=== PATIENT | male | born 1980 | race Caucasian/White ===

== ENCOUNTER 2020-05-06 20:33 | Emergency (ER) | payer SELFPAY ==
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
[2020-05-06] MEDS ORDERED: Lactated Ringers 1,000 ML IV ONE (20:45)
[2020-05-06] MEDS ORDERED: Sodium Chloride 0.9% 2.5 ML Syringe FLUSH PRN (20:49)
[2020-05-06] MEDS ORDERED: Sodium Chloride 0.9% 10 ML Syringe FLUSH PRN (20:49)
[2020-05-06] MEDS ORDERED: HYDROmorphone 1 MG/ML Syringe IVPUSH ONE ×2 (20:50→23:35)
[2020-05-06] MEDS ORDERED: HYDROmorphone 1 MG/ML Syringe ONE (20:51)
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
[2020-05-06 21:05] LABS: BLOOD UREA NITROGEN,BUN 7 mg/dL (7.0-18.0); CARBON DIOXIDE,CO2 25.4 mmol/L (21.0-32.0); CHLORIDE,CL 102 mmol/L (98-107); GLUCOSE RANDOM 109 mg/dL (74-106); SODIUM,NA 142 mmol/L (136-148)
== END 2020-05-06 21:47 ==
LOC: MW.ED 20:33
DX: S61.432A Puncture wound without foreign body of left hand, initial encounter (principal); Z20.822 Contact with and (suspected) exposure to COVID-19; W34.00XA Accidental discharge from unspecified firearms or gun, initial encounter
CPT/HCPCS: 29125; 36415; 73130; 80053; 80179; 85025; 87635; 96374; 96376; 99285; J1170; J7120; 99284; U0002

== ENCOUNTER 2022-01-16 18:19 | Emergency (ER) | payer OTHER ==
[2022-01-16] MEDS ORDERED: Acetaminophen/oxyCODONE 325-5 MG Tab PO ONE (20:55)
== END 2022-01-16 22:00 | disposition home or self-care (01) ==
LOC: MW.ED 18:19
DX: S43.031A Inferior subluxation of right humerus, initial encounter (principal); V89.2XXA Person injured in unspecified motor-vehicle accident, traffic, initial encounter; Y92.410 Unspecified street and highway as the place of occurrence of the external cause
CPT/HCPCS: 73000; 73030; 99284; A9270